=== PATIENT | female | born 1950 | race Caucasian/White ===

== ENCOUNTER 2017-08-12 18:03 | Emergency (ER) | payer MEDICARE, SELFPAY ==
[2017-08-12] VITALS (7 sets, daily range): BP systolic 120–145; BP diastolic 70–89; PULSE 79–108; RESP 12–18; TEMP 36.8; O2SAT 96–100; BMI 18.9
--- NOTE | 2017-08-12 18:37 | RAD_ITS ---
STUDY: X-RAY CHEST REASON FOR EXAM: Female, 67 years old. Chest pain TECHNIQUE: Single AP portable view of the chest. COMPARISON: 09/12/2012 FINDINGS: The lungs are clear and expanded. There is no demonstrated pleural abnormality. Normal size heart. Normal mediastinum and franklin. Normal visualized pulmonary arteries. Normal visualized aortic arch and descending thoracic aorta. Normal visualized thoracic spine. Normal visualized ribs, clavicles, and shoulders. There is no demonstrated abnormality of the visualized soft tissue structures of the upper abdomen. RAD/Chest 1 View (Portable) IMPRESSION: Stable, nonacute portable x-ray examination of the chest. Electronically Signed: Arturo Novoa MD at 20:36 EST , Service support ,
--- NOTE | 2017-08-12 18:37 | EKG12_ITS ---
Test Reason : CP Blood Pressure : / mmHG Vent. Rate : 094 BPM Atrial Rate : 094 BPM P-R Int : 118 ms QRS Dur : 082 ms QT Int : 350 ms P-R-T Axes : 075 071 069 degrees QTc Int : 437 ms Normal sinus rhythm Normal ECG Confirmed by CHITRA HIDALGO, SERENITY ([id number]), videotape editor NING OCONNOR ([id number]) on 08/14/2017 1:36:37 PM Referred By: MO Confirmed By:SERENITY BUENROSTRO MD
[2017-08-12 18:48] LABS: Absolute Lymphocyte Count 1.91 X10^3/ul (0.83-4.51); Absolute Neutrophil Count 3.5 X10^3/uL (2.0-7.7); Basophil# 0.03 X10^3/uL; Basophil% 0.5 % (0-1); Eosinophil# 0.09 X10^3/uL; Eosinophils% 1.5 % (0-5); Hematocrit 38.8 % (37-47); Hemoglobin 12.9 g/dl (12.0-15.0); Lymphocyte # 1.91 X10^3/ul (4.0); Lymphocyte % 32.9 % (19-41); Mean Corp Hgb Conc 33.2 g/gl (32-36); Mean Corpuscular Hgb 29.3 pg (27.0-32.0); Mean Platelet Vol. 10.2 fl (6.2-12.0); Monocyte# 0.28 X10^3/uL; Monocyte% 4.8 % (0-10); Neutrophil # 3.49 X10^3/uL (2.7-7.7); Neutrophil % 60.1 % (47-70); Platelet Count 214 K/mm3 (150-450); RBC Distribution Width CV 13.3 % (11.6-14.6); RBC Distribution Width SD 42.5 fl (35.1-43.9); Red Blood Count 4.41 M/mm3 (4.2-5.4); White Blood Count 5.8 K/mm3 (4.4-11.0)
[2017-08-12 18:50] LABS: POSITIVE COUNT NO; POSITIVE DIFFERENTIAL NO; POSITIVE MORPHOLOGY NO
[2017-08-12 19:15] LABS: Anion Gap 4 (5-15); BUN 21 mg/dL (7-18); Calcium,Total 9.1 mg/dL (8.5-10.1); Chloride 106 mmol/L (98-107); Creatinine, Serum 0.91 mg/dL (0.55-1.02); EST Glomerular Filtration Rate 66 mL/min (>60); Est Glom Filt Rate - Afr Amer 79 mL/min (>60); Glucose 146 mg/dL (74-106); Potassium 3.5 mmol/L (3.5-5.1); Sodium Level 141 mmol/L (136-145)
[2017-08-12 19:34] LABS: D-Dimer Quantitative (DVT/PE) < 0.27 FEU/ug/m (0.27-0.49)
[2017-08-12] MEDS: Aspirin 81 MG TAB.CHEW 243 MG PO (20:09)
[2017-08-12] MEDS: 0.9% Normal Saline 1,000 ML 150 ML IV (20:09)
--- NOTE | 2017-08-12 21:21 | EKG12_ITS ---
Test Reason : REPEPAT Blood Pressure : / mmHG Vent. Rate : 080 BPM Atrial Rate : 080 BPM P-R Int : 124 ms QRS Dur : 074 ms QT Int : 372 ms P-R-T Axes : 076 075 070 degrees QTc Int : 429 ms Normal sinus rhythm Normal ECG Confirmed by CHITRA HIDALGO, SERENITY ([id number]), acquisitions editor NING OCONNOR ([id number]) on 08/14/2017 1:36:25 PM Referred By: AMIRAH Confirmed By:SERENITY BUENROSTRO MD
--- NOTE | 2017-08-12 22:30 | ED.VISSUMM ---
- ER Visit Summary Date of Service: 08/12/17 Chief Complaint: Chest pain History of Present Illness: The patient is a 67 F who reports onset of left sternal chest pain at 330 this afternoon. Patient states that it started when she got up from a nap. She describes as sharp, heavy, and squeezing. Pain is worse with deep breath or with movement. She states she does not medically feel short of breath, but has increased pain with deep breath. She denies any change in activity or injury. She last had URI and cough symptoms approximately 6 weeks ago. Past history significant for SVT, high cholesterol, and asthma. She states her last stress test was in March 2016 and normal. Physical Examination: Vital signs are unremarkable. Head and neck examination is normal. Heart is regular rate and rhythm. Lung sounds are clear. She is reproducible tenderness along the left sternal border. Abdomen is soft nontender. Lower external examination was no calf tenderness or edema. She has strong distal pulses throughout. Test Results: EKG is sinus at 94 with no sign of acute ischemia. Portable chest x-ray shows no acute disease. CBC and chemistry studies are grossly unremarkable. Initial troponin is less than 0.02. D-dimer is less than 0.27. Emergency Department Course and Treatment: Patient received aspirin here. I evaluated her 3 hours after onset of her symptoms. We chose to perform a 3 hour repeat test. Repeat EKG and repeat troponin are both normal. Sensation at this time I feel comfortable discharging the patient home with follow-up. I believe her symptoms are all chest wall in nature. Treatment Plan: [] Disposition: Discharge Impression: Chest wall pain This note was generated with Pure[employer] dictation software. It may contain incorrect words, spelling, and punctuation that were not noted in review of the chart prior to signing ED Disposition - Plan for ED Patient: Disposition: Home or Assisted Living Chief Complaint: Chest Pain Instructions: ED Strain Chest Wall Referrals: Yonatan Salguero MD [Primary Care Provider] - 5-7 Days
== END 2017-08-12 22:44 | disposition home or self-care (01) ==
PROVIDERS: Emergency Provider Emergency Medicine; Family Provider Family Medicine; PCP Family Medicine
DX: R07.89 Other chest pain (principal); I47.1 Supraventricular tachycardia; J45.909 Unspecified asthma, uncomplicated; Z79.51 Long term (current) use of inhaled steroids
CPT/HCPCS: 36415; 71045; 80048; 84484; 85025; 85379; 93005; 96360; 96361; 99285; J7030; A4216

== ENCOUNTER → 2017-10-22 16:16 | Outpatient (CLI) | payer MEDICARE, SELFPAY ==
[2017-10-22 18:09] LABS: Absolute Lymphocyte Count 1.66 X10^3/ul (0.83-4.51); Absolute Neutrophil Count 3.6 X10^3/uL (2.0-7.7); Basophil# 0.03 X10^3/uL; Basophil% 0.5 % (0-1); Eosinophil# 0.09 X10^3/uL; Eosinophils% 1.6 % (0-5); Hematocrit 39.7 % (37-47); Hemoglobin 13.1 g/dl (12.0-15.0); Lymphocyte # 1.66 X10^3/ul (4.0); Lymphocyte % 28.7 % (19-41); Mean Corpuscular Volume 87.8 fL (81-99); Mean Platelet Vol. 10.5 fl (6.2-12.0); Monocyte# 0.36 X10^3/uL; Monocyte% 6.2 % (0-10); Neutrophil # 3.64 X10^3/uL (2.7-7.7); Neutrophil % 62.8 % (47-70); Platelet Count 229 K/mm3 (150-450); RBC Distribution Width CV 13.7 % (11.6-14.6); RBC Distribution Width SD 43.6 fl (35.1-43.9); Red Blood Count 4.52 M/mm3 (4.2-5.4); White Blood Count 5.8 K/mm3 (4.4-11.0)
[2017-10-22 18:11] LABS: POSITIVE COUNT NO; POSITIVE DIFFERENTIAL NO; POSITIVE MORPHOLOGY NO
[2017-10-22 18:36] LABS: ALB/GLOB Ratio 1.2 RATIO (0.9-2.4); AST(SGOT) 28 U/L (15-37); Alanine Aminotransfer ALT/SGPT 25 U/L (13-56); Alkaline Phosphatase 101 U/L (45-117); Anion Gap 5 (5-15); BUN 17 mg/dL (7-18); Chloride 104 mmol/L (98-107); Creatinine, Serum 0.85 mg/dL (0.55-1.02); EST Glomerular Filtration Rate 71 mL/min (>60); Est Glom Filt Rate - Afr Amer 86 mL/min (>60); Globulin 3.3 g/dL (2.2-4.2); Glucose 108 mg/dL (74-106); Potassium 3.9 mmol/L (3.5-5.1); Protein, Total 7.3 g/dL (6.4-8.2); Sodium Level 141 mmol/L (136-145); T4 Free Direct 0.96 ng/dL (0.76-1.46); Thyroid Stim Hormone (TSH) 0.76 uIU/mL (0.358-3.74)
== END ==
PROVIDERS: Family Provider Family Medicine; PCP Family Medicine; Visit Provider Family Medicine
DX: E55.9 Vitamin D deficiency, unspecified (principal); R53.83 Other fatigue
CPT/HCPCS: 36415; 80053; 82306; 84439; 84443; 85025

== ENCOUNTER → 2017-11-19 10:18 | Outpatient (CLI) | payer MEDICARE, SELFPAY ==
--- NOTE | 2017-11-19 10:24 | BD_ITS ---
STUDY: DUAL ENERGY X-RAY ABSORPTIOMETRY / DXA REASON FOR EXAM: Female, 67 years old. The patient is postmenopausal. Loss of right. TECHNIQUE: Bone Mineral Density (BMD) measurements of lumbar spine and bilateral hips were obtained. COMPARISON: None. FINDINGS: Lumbar Spine (L1-L4): g/cm2 (0.777) / T-score (-3.3) / Z-score (-1.7) Findings are suggestive of osteoporosis with a high fracture risk. Left Femur Total: g/cm2 (0.679) / T-score (-2.6) / Z-score (-1.4) Left Femoral Neck: g/cm2 (0.730) / T-score (-2.2) / Z-score (-0.7) Right Femur Total: g/cm2 (0.755) / T-score (-2.0) / Z-score (-0.8) Right Femoral Neck: g/cm2 (0.748) / T-score (-2.1) / Z-score (0.6) BD/Dexa Bone Density Study IMPRESSION: The patient is considered osteoporotic as outlined below according to World Reji Organization (WHO) criteria with a high fracture risk. Reference Information: The T-score is the number of standard deviations above or below the standard which is normal for young adults at their peak bone mineral density. The World Health Organization (WHO) interprets the T-scores as follows: Above -1 Normal bone density Between -1 and -2.5 Osteopenia Equal to / or below -2.5 Osteoporosis As a practical clinical guideline, osteopenia may be graded as follows: Mild -1 through -1.5 Moderate -1.6 through -2.0 Severe -2.1 through -2.4 The Z-score is the number of standard deviations above or below age-matched controls. A Z-score of less than -1.5 would be considered abnormal. References: 1. NIH Osteoporosis and Related Bone Diseases http://www.osteo.org 2. International Society for Clinical Densitometry http://www.iscd.org 3. National Osteoporosis Foundation http://www.nof.org Electronically Signed: Kedar Davenport MD at 11:11 EDT Tel [phone], Service support ,
--- NOTE | 2017-11-19 10:24 | BI_ITS ---
MAMMOGRAPHY - BILATERAL SCREENING REASON FOR EXAM: Female, 67 years old. Routine annual screening examination. PERTINENT HISTORY: Non-contributory. Remote right breast biopsy. TECHNIQUE: Digital bilateral breast muna (3D mammographic acquisition) in the CC and MLO projections. 2-D mediolateral oblique (MLO) and craniocaudad (CC) views of both breasts were obtained. CAD: Full Field Digital Mammography with Computer Added Detection was performed. COMPARISON: Comparison is made with prior outside examination dated August 03, 2016. FINDINGS: Breast Composition: The breasts are heterogeneously dense, which may obscure small masses. There are no dominant masses or suspicious calcifications. A tissue clip marker is seen in the upper slightly lateral portion of the right breast. No other significant abnormalities are identified. There has been no significant change since the prior study. BI/SCREENING MAMM (CAD), BILAT IMPRESSION: Stable bilateral screening mammogram. Yearly follow-up mammogram recommended. (A) ASSESSMENT CATEGORY: BIRADS Category 2: Benign. A letter regarding these results will be sent to the patient by the facility within 30 days. Approximately 10% of breast cancers are not detected by mammography. A normal mammogram should not delay biopsy of a clinically suspicious abnormality. [id number] Electronically Signed: Kedar Davenport MD at 14:21 EDT Tel [phone], Service support ,
== END ==
PROVIDERS: Family Provider Family Medicine; PCP Family Medicine; Visit Provider Family Medicine
DX: Z12.31 Encounter for screening mammogram for malignant neoplasm of breast (principal); M81.0 Age-related osteoporosis without current pathological fracture
CPT/HCPCS: 77063; 77067; 77080

== ENCOUNTER → 2018-12-23 | Outpatient (CLI) | payer MEDICARE, SELFPAY ==
[2018-12-23 10:32] LABS: Hematocrit 39.8 % (37-47); Hemoglobin 13.3 g/dl (12.0-15.0); Mean Corp Hgb Conc 33.4 g/gl (32-36); Mean Corpuscular Hgb 28.9 pg (27.0-32.0); Mean Corpuscular Volume 86.3 fL (81-99); Mean Platelet Vol. 10.5 fl (6.2-12.0); Platelet Count 222 K/mm3 (150-450); RBC Distribution Width CV 13.1 % (11.6-14.6); RBC Distribution Width SD 40.7 fl (35.1-43.9); Red Blood Count 4.61 M/mm3 (4.2-5.4); White Blood Count 4.8 K/mm3 (4.4-11.0)
[2018-12-23 10:35] LABS: Scan Indicated on CBC? Y/N NO
[2018-12-23 10:39] LABS: ALB/GLOB Ratio 1.3 RATIO (0.9-2.4); AST(SGOT) 20 U/L (15-37); Alanine Aminotransfer ALT/SGPT 21 U/L (13-56); Albumin, Serum 3.9 g/dL (3.2-5.0); Alkaline Phosphatase 84 U/L (45-117); Anion Gap 9 (5-15); BUN 17 mg/dL (7-18); BUN/Creat Ratio 19.1 RATIO (10-20); Calcium,Total 8.9 mg/dL (8.5-10.1); Chloride 107 mmol/L (98-107); Cholesterol 199 mg/dL (200); Creatinine, Serum 0.89 mg/dL (0.55-1.02); EST Glomerular Filtration Rate 68 mL/min (>60); Est Glom Filt Rate - Afr Amer 82 mL/min (>60); Glucose 93 mg/dL (74-106); High Density Lipoprotein 51 mg/dL; Potassium 3.7 mmol/L (3.5-5.1); Protein, Total 6.9 g/dL (6.4-8.2); Sodium Level 146 mmol/L (136-145); Triglycerides 183 mg/dL; Very Low Density Lipoprotein 37 mg/dL (5-40)
== END | disposition home or self-care (01) ==
LOC: MTLAB 08:29
PROVIDERS: Family Provider Family Medicine; PCP Family Medicine; Referring Provider Obstetrics & Gynecology Gynecology; Visit Provider Obstetrics & Gynecology Gynecology
DX: E83.51 Hypocalcemia (principal); E78.00 Pure hypercholesterolemia, unspecified; R53.83 Other fatigue; R53.81 Other malaise
CPT/HCPCS: 36415; 80053; 80061; 85027

== ENCOUNTER → 2019-01-05 | Outpatient (CLI) | payer MEDICARE, SELFPAY ==
[2017-08-12 18:04] VITALS: BMI 18.9
--- NOTE | 2019-01-05 15:24 | BI_ITS ---
MAMMOGRAPHY - BILATERAL SCREENING REASON FOR EXAM: Female, 68 years old. Routine annual screening examination. PERTINENT HISTORY: Non-contributory. Remote right breast biopsy. TECHNIQUE: Digital bilateral breast arthur (3D mammographic acquisition) in the CC and MLO projections. 2-D mediolateral oblique (MLO) and craniocaudad (CC) views of both breasts were obtained. CAD: Full Field Digital Mammography with Computer Added Detection was performed. COMPARISON: Comparison is made with prior study dated November 19, 2017. FINDINGS: Breast Composition: The breasts are extremely dense, which lowers the sensitivity of mammography. There are no dominant masses or suspicious calcifications. A tissue clip marker is once again seen in the upper slightly lateral aspect of the right breast. No other significant abnormalities are identified. There has been no significant change since the prior study. BI/SCREEN MAMM (CAD) W/ARTHUR BILAT IMPRESSION: Stable bilateral screening mammogram. Yearly follow-up mammogram recommended. (A) ASSESSMENT CATEGORY: BIRADS Category 2: Benign. A letter regarding these results will be sent to the patient by the facility within 30 days. Approximately 10% of breast cancers are not detected by mammography. A normal mammogram should not delay biopsy of a clinically suspicious abnormality. [id number] Electronically Signed: Kedar Davenport, at 7:57 EDT , Service support ,
== END | disposition home or self-care (01) ==
LOC: OPBI 15:23
PROVIDERS: Family Provider Family Medicine; PCP Family Medicine; Referring Provider Obstetrics & Gynecology Gynecology; Visit Provider Obstetrics & Gynecology Gynecology
DX: Z12.31 Encounter for screening mammogram for malignant neoplasm of breast (principal)
CPT/HCPCS: 77063; 77067

== ENCOUNTER → 2019-04-21 | Outpatient (CLI) | payer MEDICARE, SELFPAY | END | disposition home or self-care (01) | LOC: BFHLAB 15:33 | PROVIDERS: Family Provider Family Medicine; PCP Family Medicine; Visit Provider Family Medicine | DX: N39.0 Urinary tract infection, site not specified (principal) | CPT/HCPCS: 87086 ==

== ENCOUNTER 2019-05-18 06:27 | Day surgery (SDC) | payer MEDICARE, SELFPAY ==
[2019-04-27 10:13] VITALS: BMI 18.9
--- NOTE | 2019-04-27 10:28 | HP_ITS ---
Intake Vital Signs 04/27/19 Body Mass Index (BMI) 18.9 04/27/19 Height 5 ft 5.5 in 04/27/19 Weight: 113 lb 7 oz 04/27/19 Body Mass Index (BMI) 18.6 04/27/19 Blood Pressure 117/74 04/27/19 Blood Pressure Location Rt brachial 04/27/19 Blood Pressure Position Sitting 04/27/19 Respiratory Rate 20 H 04/27/19 Pulse Rate 86 04/27/19 Pulse Ox 97 Intake Visit Reasons: Positive Hemoccult, EGD/C-Scope Consult Chief Complaint: heme + stool Machine Sander Required: No Is patient in pain?: No Allergies acetaminophen [From Darvocet-N 100] Allergy (Verified 04/27/19 10:12) Unknown propoxyphene napsylate [From Darvocet-N 100] Allergy (Verified 04/27/19 10:12) Unknown Medications Ipratropium/Albuterol Respimat [Combivent Respimat Inhal Patterson] 1 puff INHALATION 4X/DAY 08/12/17 [History Confirmed 04/27/19] Montelukast Sodium 10 mg PO DAILY 08/12/17 [History Confirmed 04/27/19] Is last menstrual period known: No Post menopausal: Yes Patient : No PFSH Medical History Osteoarthritis (Acute) SVT (supraventricular tachycardia) (Acute) Fibromyalgia (Chronic) Asthma (Chronic) Surgical History History of colonoscopy (Acute) History of dental surgery (Acute) History of esophagogastroduodenoscopy (EGD) (Acute) History of mandibular surgery (Acute) History of tonsillectomy (Acute) History of total vaginal hysterectomy (Acute) Family History Other Diabetes Heart disease Social History (Updated 04/27/19 @ 10:29 by Jose Bruner MD) Smoking Status: Never smoker HPI HPI HPI: CHENG BARON, is a 69 F who presents to the office today for HPI HPI Surgical H&P: Yes HPI: CHENG BARON, is a 69 F who presents to the office today for Evaluation for endoscopy. Patient has had a positive Hemoccult test. She has noticed some intermittent abdominal cramping and some bloating but she has not noticed any visible blood. The patient has had an endoscopy in [address] Cormier and has had a history of colitis many many years ago. She is not noticing any diarrhea. ROS General General: Yes fatigue; no weight change, appetite, colon cancer, breast cancer or weakness HEENT HEENT: No difficulty swallowing, eye injury, eye surgery, swollen glands or hoarseness Endo Endocrine: No thyroid disease, diabetes mellitus, thyroid cancer, Hair loss, heat intolerance or cold intolerance Musc Musculoskeletal: Yes arthritis; no back problems, rheumatoid arthritis, gout or joint pain Cardio Cardiovascular: No murmur, pacemaker, heart disease, atrial fibrillation, high blood pressure, heart attack, heart stent, palpitations, shortness of breat with exertion or chest pain Resp Respiratory: No shortness of breath, No sleep apnea, No cough, No COPD, Yes asthma, No emphysema, No wheezing Gastro Gastrointestinal: Yes abdominal pain, No nausea or vomiting, No diarrhea, No constipation, No blood in stool, No acid reflux, No hemorrhoids, No ulcers, Yes gallbladder problem, No black,tarry stools Richy Hematologic: No blood thinners, No blood disorders, No bleeding, No anemia, No blood clots Neuro Neurologic: No weakness Exam Const General: no acute distress, well developed, well hydrated Orientation: oriented to person, oriented to place, oriented to time [facility] Head: normocephalic, atraumatic Ears: external ears normal Mouth: moist mucous membranes Eyes Sclera: sclerae normal Pupils: normal by confrontation Neck Neck: no lymphadenopathy noted Neck mass: No Thyroid: thyroid normal, symmetrical Chest Chest palpation & inspection: normal inspection of the chest Resp Effort & Inspection: normal respiratory effort Auscultation: clear to auscultation bilaterally Percussion: percussion normal Cardio Rate: regular rate Rhythm: regular rhythm Heart Sounds: no murmurs GI Palpation: soft, no hepatosplenomegaly, no masses, nontender Rectal Exam: other Other: Rectal exam deferred. Extrem General: normal to inspection, no clubbing, cyanosis or edema Assessment & Plan Problems 1. Heme positive stool R19.5 Plan I have discussed the above with the patient. I have offered the patient colonoscopy As well as an EGD for evaluation. I have explained the risks/benefits of the procedure and described the procedure. I have discussed the risks with the patient, including but not limited to: infection, bleeding, perforation of the GI tract requiring emergency surgery, inability to complete the procedure, injury to any internal organs, complications of anesthesia, etc. - the patient understands and agrees to proceed. I have answered all the patient's questions to the patient's satisfaction and the patient has no further questions. The patient has been given instructions for the colon cleansing preparation. We will be doing random colon biopsies as well as small bowel biopsy. Coding Level of Care Code Off vis,new,level 3 Diagnoses Heme positive stool R19.5 04/27/19 1029 <Electronically signed by Jose mcmahan MD> Date _ Jose Bruner MD I have re-examined the patient. There are no clinical changes since date of exam.
[2019-05-18] VITALS (8 sets, daily range): BP systolic 96–131; BP diastolic 57–72; PULSE 62–87; RESP 16; TEMP 36.3–36.4; O2SAT 97–100; BMI 21.5
--- NOTE | 2019-05-18 07:30 | IMM_PTH ---
PATIENT: CHENG BARON LOC: EN U#:[id number] AGE/SX: 69/F ROOM: RE05/18/[address]: Dr. Jose Bruner MD : 1950 BED: DIS: 05/18/2019 SPEC #: [id number] RECD: 05/18/19 10:05 STATUS: EMILY REQ #: [id number] DARIN: 05/18/19 07:[address]: Jose Bruner DEPT: IMMUNOHISTOCHEMISTRY RECD BY: Adriana Carrillo ENTERED: 05/18/19 10:05 SP TYPE: IMMUNO OTHR DR: Dr. Yonatan Salguero MD Tissues: B - Stomach, NOS Procedures: H Pylori (initial) PHYSICIAN & INSTITUTION [place] [id number] SPECIMEN INFORMATION: Tissue Source: B - Antra biopsy Clinical Info: Heme-positive stool Specimen Number: [id number] CPT code: 80204 METHODOLOGY: Deparaffinized sections of prefer/formalin-fixed tissue or PAP/DQ stained slides are incubated with monoclonal/polyclonal antibodies/oligonucleotide probes. Localization is made via biotin free immunoperoxidase method. Appropriate controls are performed and reacted as expected. Results on target cell population are indicated in the following table: RESULTS: ANTIBODY / CLONE RESULT Block B H Pylori (polyclonal) negative These tests were developed and their performance characteristics determined by [facility]. They may not have been cleared or approved by the U.S. Food and Drug Administration. The FDA has determined that such clearance or approval is not necessary. INTERPRETATION: B. Antral biopsy: Negative for Helicobacter pylori organisms. AM:letitia 05/20/19
--- NOTE | 2019-05-18 07:30 | EGD_PTH ---
PATIENT: CHENG BARON LOC: EN U#:[id number] AGE/SX: 69/F ROOM: RE05/18/[address]: Dr. Jose Bruner MD : 1950 BED: DIS: 05/18/2019 SPEC #: [id number] RECD: 05/18/19 08:52 STATUS: EMILY KYLER #: [id number] DARIN: 05/18/19 07:[address]: Jose Bruner DEPT: SURGICAL PATHOLOGY RECD BY: Luma Alvarado ENTERED: 05/18/19 11:20 SP TYPE: EGD BIOPSY OT DR: Dr. Yonatan Salguero MD Tissues: A - Duodenum, NOS B - Gastric mucous membrane C - Esophagus, NOS Procedures: Special Stain Group II Surgery Specimen Level IV Alcian Blue/PAS (control) HEADER OPERATION: [place] [place] DIAGNOSIS: Heme positive stool TISSUE SUBMITTED: A. Duodenal biopsy, B. Antral biopsy for histo and H. pylori, C. Distal esophagus biopsy MICROSCOPIC DIAGNOSIS A. Duodenum, biopsy: No pathologic change. B. Gastric antrum, biopsy: Mild chronic gastritis. See comment. C. Distal esophagus, biopsy: Gastroesophageal junctional mucosa with mild chronic inflammation. No evidence of intestinal metaplasia. See comment. AM:letitia 05/19/19 COMMENT B. The results of immunohistochemistry for Helicobacter pylori will be reported separately ([id number]). C. Alcian blue/PAS stain with matched control supports the above diagnosis. MICROSCOPIC DESCRIPTION Slides are reviewed. GROSS DESCRIPTION A - Received in fixative is one container labeled with the patient's name and designated duodenal biopsy. The specimen consists of one irregular fragment of light graham soft tissue that measures 0.2 x 0.2 x 0.1 cm. The specimen is totally submitted in one cassette. B - Received in fixative is one container labeled with the patient's name and designated antral biopsy. The specimen consists of one irregular fragment of light graham soft tissue that measures 0.5 x 0.3 x 0.1 cm. The specimen is totally submitted in one cassette. C - Received in fixative is one container labeled with the patient's name and designated distal esophagus biopsy. The specimen consists of two irregular fragments of light graham soft tissue that in aggregate measure 0.6 x 0.3 x 0.1 cm. The specimen is totally submitted in one cassette. / SJ:letitia 05/18/19 TC:5 CPT: 57388 x3, 71401
[2019-05-18] MEDS: Lactated Ringers 1,000 ML 100 ML IV (07:35)
--- NOTE | 2019-05-18 08:19 | OP.EGD_ITS ---
Patient Name: Tianna Coleman Procedure Date: 05/18/2019 7:29 AM Date of : 1950 Age: 69 Procedure: Upper GI endoscopy Indications: Suspected upper gastrointestinal bleeding in patient with chronic blood loss, Gastrointestinal bleeding Providers: Jose Bruner MD Referring MD: Yonatan Salguero Medicines: See the Anesthesia note for documentation of the administered medications Patient Profile: This is a 69 year old female. Refer to note in patient chart for documentation of history and physical. Complications: No immediate complications. Procedure: Pre-Anesthesia Assessment: - Prior to the procedure, a History and Physical was performed, and patient medications and allergies were reviewed. The patient's tolerance of previous anesthesia was also reviewed. The risks and benefits of the procedure and the sedation options and risks were discussed with the patient. All questions were answered, and informed consent was obtained. Prior Anticoagulants: The patient has taken no previous anticoagulant or antiplatelet agents. ASA Grade Assessment: II - A patient with mild systemic disease. After reviewing the risks and benefits, the patient was deemed in satisfactory condition to undergo the procedure. After obtaining informed consent, the endoscope was passed under direct vision. Throughout the procedure, the patient's blood pressure, pulse, and oxygen saturations were monitored continuously. The gastroscope was introduced through the mouth, and advanced to the second part of duodenum. The upper GI endoscopy was accomplished without difficulty. The patient tolerated the procedure well. Scope In: 7:56:16 AM Scope Out: 7:59:46 AM Total Procedure Duration Time 0 hours 3 minutes 30 seconds Findings: Mucosal changes including white plaques and mucosal friability were found at the gastroesophageal junction. Esophageal findings were graded using the Eosinophilic Esophagitis Endoscopic Reference Score (EoE-EREFS) as: Edema Grade 0 Normal (distinct vascular markings), Rings Grade 0 None (no ridges or rings seen), Exudates Grade 1 Mild (scattered white lesions involving less than 10 percent of the esophageal surface area), Furrows Grade 1 Present (vertical lines with or without visible depth) and Stricture none (no stricture found). Biopsies were taken with a cold forceps for histology. Localized mild inflammation characterized by congestion (edema) and linear erosions was found in the entire examined stomach. Biopsies were taken with a cold forceps for Helicobacter pylori testing. The examined duodenum was normal. Biopsies for histology were taken with a cold forceps for evaluation of celiac disease. Impression: - Esophageal mucosal changes secondary to eosinophilic esophagitis. Biopsied. - Gastritis. Biopsied. - Normal examined duodenum. Biopsied. Recommendation: - Await pathology results. - Repeat upper endoscopy in 1 year for surveillance. - Return to GI office in 1 week. - Continue present medications. Procedure Code(s): --- Professional --- 33565, Esophagogastroduodenoscopy, flexible, transoral; with biopsy, single or multiple Diagnosis Code(s): --- Professional --- K20.0, Eosinophilic esophagitis K29.70, Gastritis, unspecified, without bleeding R58, Hemorrhage, not elsewhere classified K92.2, Gastrointestinal hemorrhage, unspecified CPT copyright 2017 [employer]. All rights reserved. The codes documented in this report are preliminary and upon senior software qa engineer review may be revised to meet current compliance requirements. MD Jose Salomon MD 05/18/2019 8:19:16 AM This report has been signed electronically. Number of Addenda: 0 Note Initiated On: 05/18/2019 7:29 AM
--- NOTE | 2019-05-18 08:23 | OP.COLON_ITS ---
Patient Name: Tianna Coleman Procedure Date: 05/18/2019 8:01 AM Date of : 1950 Age: 69 Procedure: Colonoscopy Indications: Heme positive stool Providers: Jose Bruner MD Referring MD: Yonatan Salguero Medicines: See the Anesthesia note for documentation of the administered medications Patient Profile: This is a 69 year old female. Refer to note in patient chart for documentation of history and physical. Last Colonoscopy: 2011. Complications: No immediate complications. Procedure: Pre-Anesthesia Assessment: - Prior to the procedure, a History and Physical was performed, and patient medications and allergies were reviewed. The patient's tolerance of previous anesthesia was also reviewed. The risks and benefits of the procedure and the sedation options and risks were discussed with the patient. All questions were answered, and informed consent was obtained. Prior Anticoagulants: The patient has taken no previous anticoagulant or antiplatelet agents. ASA Grade Assessment: II - A patient with mild systemic disease. After reviewing the risks and benefits, the patient was deemed in satisfactory condition to undergo the procedure. After I obtained informed consent, the scope was passed under direct vision. Throughout the procedure, the patient's blood pressure, pulse, and oxygen saturations were monitored continuously. The colonoscope was introduced through the anus with the intention of advancing to the cecum. The scope was advanced to the sigmoid colon before the procedure was aborted. Medications were given. The colonoscopy was aborted due to the extreme difficulty of the procedure. Scope In: 8:02:33 AM Scope Out: 8:10:30 AM Total Procedure Duration Time 0 hours 7 minutes 57 seconds Findings: The anus, rectum, recto-sigmoid colon and sigmoid colon appeared normal. Impression: - The procedure was aborted due to the extreme difficulty of the procedure. - The anus, rectum, recto-sigmoid colon and sigmoid colon are normal. - No specimens collected. Recommendation: - Discharge patient to home. - Resume previous diet. - Continue present medications. - Perform an air contrast barium enema today. - Repeat colonoscopy at appointment to be scheduled because the examination was incomplete. Procedure Code(s): --- Professional --- 07528, 53, Colonoscopy, flexible; diagnostic, including collection of specimen(s) by brushing or washing, when performed (separate procedure) Diagnosis Code(s): --- Professional --- Z53.8, Procedure and treatment not carried out for other reasons R19.5, Other fecal abnormalities CPT copyright 2017 [employer]. All rights reserved. The codes documented in this report are preliminary and upon computer systems integrator review may be revised to meet current compliance requirements. MD Jose Salomon MD 05/18/2019 8:23:29 AM This report has been signed electronically. Number of Addenda: 0 Note Initiated On: 05/18/2019 8:01 AM
--- NOTE | 2019-05-18 10:48 | RAD_ITS ---
The preliminary film of the abdomen may showed gaseous colon: Because patient had colonoscopy. Barium was introduced to the rectum where there is excellent delineation of the rectum and descending, splenic flexure transverse colon hepatic flexure as well as the transverse and ascending colon. Barium reached the cecum with no reflux into the terminal ileum is noted. No evidence of filling defect identified. A single diverticulum noted in the sigmoid colon. No diverticulitis. RAD/Barium Enema w/Air Contrast IMPRESSION: Negative barium enema except for single small diverticulum in the sigmoid Electronically Signed: Jasmeet Newsome, at 12:10 EST Tel , Service support ,
== END 2019-05-18 10:40 | disposition home or self-care (01) ==
LOC: EN 06:30 → AC 06:30
PROVIDERS: Family Provider Family Medicine; PCP Family Medicine; Referring Provider Family Medicine; Visit Provider Surgery
PROC: 0DJD8ZZ Inspection of Lower Intestinal Tract, Via Natural or Artificial Opening Endoscopic (ICD-10-PCS; CPT 45378; principal; 2019-05-18 07:25)
DX: K29.50 Unspecified chronic gastritis without bleeding (principal); K20.0 Eosinophilic esophagitis; R19.5 Other fecal abnormalities; Z53.8 Procedure and treatment not carried out for other reasons; M79.7 Fibromyalgia; J45.909 Unspecified asthma, uncomplicated
CPT/HCPCS: 43239; 45378; 74280; 88305; 88313; 88342; J7120; J2405

== ENCOUNTER 2019-07-02 23:10 | Emergency (ER) | payer MEDICARE, SELFPAY ==
[2019-05-18 07:28] VITALS: BMI 21.5
[2019-07-02 23:12] VITALS: BP 144/92; PULSE 88; RESP 18; TEMP 36.4; O2SAT 99; BMI 18.3
--- NOTE | 2019-07-02 23:22 | ED.VIS.GEN ---
History of Present Illness Chief Complaint: Lower Extremity Injury Detail of Chief Complaint: Left foot injury Informant: Patient Onset: Today Current Severity: Mild Maximum Severity: Moderate Narrative: Patient presents with pain to the toes of her left foot after walking into a door earlier tonight. She was wearing socks only at the time. She iced and elevated her foot, but still has difficulty with ambulation. - Past Medical History (1) Asthma Status: Chronic (2) Fibromyalgia Status: Chronic Past Medical History - Allergies and Home Meds Allergies/Adverse Reactions: Allergies acetaminophen [From Darvocet-N 100] Allergy (Verified 07/02/19 23:14) Unknown propoxyphene napsylate [From Darvocet-N 100] Allergy (Verified 07/02/19 23:14) Unknown midazolam [From Versed] Adverse Reaction (Verified 07/02/19 23:14) disoreinted Primary Care Physician: Yonatan Salguero MD [Primary Care Provider] - Prior records reviewed: Yes Surgical History: hysterectomy Smoking Status: Never smoker Review of Systems General: Denies: Chills, Fever Eyes: Denies: Visual changes - bilaterally ENT: Denies: Bilateral ear pain Cardiovascular: Denies: Chest pain Respiratory: Denies: Dyspnea Gastrointestinal: Denies: Abdominal pain Musculoskeletal: Reports: Extremity Pain. Denies: Back pain Neurological: Denies: Numbness Hematologic: Denies: Easy bruising Physical Exam Vital Signs/Narrative: Vital Signs Temp Pulse Resp BP Pulse Ox 07/02/19 23:12 97.6 F L 88 18 144/92 H 99 Inital Vital Signs reviewed: Yes General: Well nourished, Well developed Head: Normocephalic ENT: Moist mucous membranes Neck: Supple Cardiovascular: Regular rate, Regular rhythm Respiratory: No distress, CTA bilaterally Abdomen: Soft, Nontender Extremities: - - Patient has reproducible tenderness over her toes, worse on the third toe. Good cap refill and sensation distally. No tenderness over the metatarsals. Skin: Normal color Neurological: Alert, Oriented x3 Psychological: Normal affect Diagnostic/Tx/Re-eval Left foot x-rays are read by myself. There is an oblique fracture across the proximal phalanx of the third toe. - Medical Decision Making Patient is given naproxen here. Second third toes were tiburcio taped together. Postop shoe was given. ED Disposition - Plan for ED Patient: Disposition: Home or Assisted Living Diagnosis: Fracture of third toe, left, closed Instructions: FRACTURE, Toe [Closed] Prescriptions: Naproxen [Naprosyn] 500 mg PO BID PRN PRN #20 tablet PRN Reason: Pain Score 4-10/10 Referrals: Yonatan Salguero MD [Primary Care Provider] - 1-2 Weeks
--- NOTE | 2019-07-02 23:28 | RAD_ITS ---
STUDY: X-RAY - LEFT FOOT CLINICAL: Female, 69 years old. STUBBED MIDDLE TOE, PAIN TECHNIQUE: 3 view(s) of the foot. COMPARISON: None. FINDINGS: Normal talus, calcaneus, and tarsal bones. Normal visualized subtalar, talonavicular, calcaneocuboid, tarsal and tarsometatarsal articulations. Normal metatarsi. Normal metatarsophalangeal joint of the great toe. Normal tibial and fibular sesamoid bones. Normal interphalangeal joint of the great toe. Normal phalanges of the great toe. Normal second through fifth metatarsophalangeal joints. Acute distal diaphyseal, nonarticular acute fracture of the proximal phalanx of the third toe with 2 mm lateral displacement. Fracture related soft tissue swelling. RAD/Foot min 3 Views IMPRESSION: Acute distal diaphyseal nonarticular fracture of the proximal phalanx of the third toe with 2 mm lateral displacement. Electronically Signed: Layla Rodriguez MD at 23:39 EST , Service support ,
[2019-07-03] MEDS: Naproxen 500 MG Tablet PO (00:11)
== END 2019-07-03 00:14 | disposition home or self-care (01) ==
PROVIDERS: Emergency Provider Emergency Medicine; Family Provider Family Medicine; PCP Family Medicine
DX: S92.512A Displaced fracture of proximal phalanx of left lesser toe(s), initial encounter for closed fracture (principal); J45.909 Unspecified asthma, uncomplicated; Z79.51 Long term (current) use of inhaled steroids; W22.03XA Walked into furniture, initial encounter; Y93.01 Activity, walking, marching and hiking; Y92.89 Other specified places as the place of occurrence of the external cause; Y99.8 Other external cause status
CPT/HCPCS: 73630; 99283

== ENCOUNTER → 2020-03-01 | Outpatient (CLI) | payer MEDICARE, SELFPAY ==
--- NOTE | 2020-03-01 08:39 | BI_ITS ---
MAMMOGRAPHY - BILATERAL DIAGNOSTIC REASON FOR EXAM: Female, 69 years old. Six-month history of left periareolar nodule. PERTINENT HISTORY: Non-contributory. TECHNIQUE: Digital bilateral breast muna (3D mammographic acquisition) in the CC and MLO projections. 2-D mediolateral oblique (MLO) and craniocaudad (CC) views of both breasts were obtained. CAD: Full Field Digital Mammography with Computer Added Detection was performed. COMPARISON: Comparison is made with prior study dated 01/05/2019 and 11/19/2017. FINDINGS: Breast Composition: The breasts are extremely dense, which lowers the sensitivity of mammography. There are no dominant masses or suspicious calcifications. A tissue clip marker is once again seen in the upper central portion of the right breast. No other significant abnormalities are identified. There has been no significant change since the prior study. BI/DIAG MAMM W/CAD, BILAT IMPRESSION: Stable bilateral diagnostic mammogram. With the patient''s history of a palpable lump in the left periareolar region, correlation with ultrasound is recommended. ASSESSMENT CATEGORY: BIRADS Category 0: Incomplete. Need additional imaging evaluation. A letter regarding these results will be sent to the patient by the facility within 30 days. Approximately 10% of breast cancers are not detected by mammography. A normal mammogram should not delay biopsy of a clinically suspicious abnormality. Electronically Signed: Kedar Davenport, at 10:39 EDT , Service support ,
--- NOTE | 2020-03-01 08:39 | US_ITS ---
STUDY: ULTRASOUND BREAST - LEFT REASON FOR EXAM: Female, 69 years old. Palpable lump left breast. TECHNIQUE: Axial and longitudinal images of the LEFT breast were performed with a high resolution ultrasound transducer. # OF IMAGES: 27 COMPARISON: Comparison is made with prior mammogram done earlier today. FINDINGS: LEFT Breast: There is a 2 mm x 3 mm x 2 mm retroareolar cyst. This also evidence of mildly dilated retroareolar ducts. US/Breast Limited Unilateral IMPRESSION: Mild degree of dilated retroareolar ducts. Small retroareolar cyst. ASSESSMENT CATEGORY: BIRADS Category 2: Benign. A letter regarding these results will be sent to the patient by the facility within 30 days. Electronically Signed: Kedar Davenport, at 11:03 EDT , Service support ,
--- NOTE | 2020-03-01 08:42 | BD_ITS ---
STUDY: DUAL ENERGY X-RAY ABSORPTIOMETRY / DXA REASON FOR EXAM: Female, 69 years old. 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 COMPARISON: Comparison is made with prior study dated 11/19/2017. FINDINGS: Lumbar Spine (L1-L4): g/cm2 (0.810) / T-score (-3.1) / Z-score (-1.4) Findings are suggestive of osteoporosis with a high fracture risk. Left Femur Total: g/cm2 (0.684) / T-score (-2.6) / Z-score (-1.2) Left Femoral Neck: g/cm2 (0.734) / T-score (-2.2) / Z-score (-0.6) Right Femur Total: g/cm2 (0.748) / T-score (-2.1) / Z-score (-0.7) Right Femoral Neck: g/cm2 (0.753) / T-score (-2.1) / Z-score (-0.5) The T-Scores on the most recent prior examination were: Lumbar Spine (L1-L4): There has been improvement of bone density since the previous examination. Left Femur Total: which represents an improvement of 0.7%. Right Femur Total: which represents a worsening of 0.9%. BD/Dexa Bone Density Study IMPRESSION: The patient is considered osteoporotic as outlined below according to World Reji Organization (WHO) criteria with a high fracture risk. There has been improvement of bone density since the previous examination. Reference Information: The T-score is the number of standard deviations above or below the standard which is normal for young adults at their peak bone mineral density. The World Health Organization (WHO) interprets the T-scores as follows: Above -1 Normal bone density Between -1 and -2.5 Osteopenia Equal to / or below -2.5 Osteoporosis As a practical clinical guideline, osteopenia may be graded as follows: Mild -1 through -1.5 Moderate -1.6 through -2.0 Severe -2.1 through -2.4 The Z-score is the number of standard deviations above or below age-matched controls. A Z-score of less than -1.5 would be considered abnormal. References: 1. NIH Osteoporosis and Related Bone Diseases http://www.osteo.org 2. International Society for Clinical Densitometry http://www.iscd.org 3. National Osteoporosis Foundation http://www.nof.org Electronically Signed: Kedar Davenport, at 11:09 EDT , Service support ,
== END | disposition home or self-care (01) ==
LOC: OPBI 08:37
PROVIDERS: PCP Family Medicine; Referring Provider Obstetrics & Gynecology Gynecology; Visit Provider Obstetrics & Gynecology Gynecology
DX: N63.24 Unspecified lump in the left breast, lower inner quadrant (principal); N63.23 Unspecified lump in the left breast, lower outer quadrant; Z78.0 Asymptomatic menopausal state; Z13.820 Encounter for screening for osteoporosis
CPT/HCPCS: 76642; 77062; 77066; 77080; G0279

== ENCOUNTER 2021-02-17 08:47 | Emergency (ER) | payer MEDICARE, SELFPAY ==
[2021-02-17] VITALS (7 sets, daily range): BP systolic 106–132; BP diastolic 66–84; PULSE 69–166; RESP 12–20; TEMP 36.4; O2SAT 98–100; BMI 18.1
[2021-02-17] MEDS: Adenosine 6 MG/2 ML Syringe IV (09:00)
--- NOTE | 2021-02-17 09:03 | RAD_ITS ---
STUDY: X-RAY CHEST REASON FOR EXAM: Female, 70 years old. Chest pain TECHNIQUE: Single AP portable view of the chest. COMPARISON: Comparison is made with prior study dated 08/12/2017. FINDINGS: EKG electrodes are seen. Hyperinflation. The lungs are clear. There is no demonstrated pleural abnormality. Normal size heart. Normal mediastinum and franklin. Normal visualized pulmonary arteries. Normal visualized aortic arch and descending thoracic aorta. Normal visualized thoracic spine. Normal visualized ribs, clavicles, and shoulders. There is no demonstrated abnormality of the visualized soft tissue structures of the upper abdomen. RAD/Chest 1 View (Portable) IMPRESSION: Hyperinflation. The lungs are clear. Electronically Signed: Kedar Davenport MD at 9:26 EDT , Service support ,
--- NOTE | 2021-02-17 09:03 | EKG12_ITS ---
Test Reason : CP Blood Pressure : / mmHG Vent. Rate : 164 BPM Atrial Rate : 328 BPM P-R Int : 000 ms QRS Dur : 076 ms QT Int : 270 ms P-R-T Axes : 000 080 -41 degrees QTc Int : 445 ms Atrial flutter Nonspecific ST abnormality Abnormal ECG Confirmed by JORDI HIDALGO, ISACC ([id number]), food editor PETER PATEL ([id number]) on 02/20/2021 12:41:32 PM Referred By: PL Confirmed By:ISACC BACON MD
[2021-02-17 09:09] LABS: Absolute Lymphocyte Count 2.03 X10^3/uL (0.83-4.51); Absolute Neutrophil Count 3.6 X10^3/uL (2.0-7.7); Basophil# 0.05 X10^3/uL; Basophil% 0.8 % (0-1); Eosinophils% 1.6 % (0-5); Hematocrit 47.8 % (37-47); Hemoglobin 15.6 g/dL (12.0-15.0); Lymphocyte # 2.03 X10^3/ul (0.83-4.51); Lymphocyte % 32.2 % (19-41); Mean Corp Hgb Conc 32.6 g/dL (32-36); Mean Corpuscular Hgb 29.4 pg (27.0-32.0); Mean Platelet Vol. 10.8 fl (6.2-12.0); Monocyte# 0.47 X10^3/uL; Monocyte% 7.5 % (0-10); NRBC Flagged by Analyzer 0 % (0-5); Neutrophil # 3.64 X10^3/uL (2.7-7.7); Neutrophil % 57.7 % (47-70); Platelet Count 276 K/mm3 (150-450); RBC Distribution Width CV 13.1 % (11.6-14.6); RBC Distribution Width SD 43.1 fl (35.1-43.9); Red Blood Count 5.31 M/mm3 (4.2-5.4); White Blood Count 6.3 K/mm3 (4.4-11.0)
[2021-02-17 09:23] LABS: Anion Gap 7 (5-15); BUN 23 mg/dL (7-18); BUN/Creat Ratio 22.3 RATIO (10-20); Calcium,Total 9.9 mg/dL (8.5-10.1); Chloride 105 mmol/L (98-107); Creatinine, Serum 1.03 mg/dL (0.55-1.02); EST Glomerular Filtration Rate 57 mL/min (>60); Est Glom Filt Rate - Afr Amer 68 mL/min (>60); Estimated Creatinine Clearance 41.51 ml/min; Glucose 132 mg/dL (74-106); Potassium 3.7 mmol/L (3.5-5.1); Sodium Level 142 mmol/L (136-145); Troponin-I HS 5 pg/mL (3.0-54.0)
--- NOTE | 2021-02-17 09:23 | EX.ED.DYSGE1 ---
HPI History of Present Illness Chief Complaint: Palpitations Informant: patient Narrative Narrative: Patient presents with SVT. She has had episodes of this for over 10 years. She has been on monitors. She has seen cardiology. She has had admissions with extensive work-up. Oftentimes she can use home techniques to break this. This 1 seem to not be breaking as much. She has used adenosine before. She has a little discomfort of her chest. She is not short of breath. No nausea vomiting or diaphoresis. Nothing she can thinks that sets this off but normally if that does not occur either. She has a history of asthma. She has no history of heart disease other than the SVT. No recent travel surgery immobilization personal or family history of DVT or PE. [facility] Medical History (Updated 02/17/21 @ 10:[address] Jas Chaney MD) Asthma Fibromyalgia Osteoarthritis SVT (supraventricular tachycardia) Home Medications ipratropium-albuterol 1 puff INHALATION 4X/DAY PRN 08/12/17 [History Last Taken Unknown] montelukast 10 mg PO DAILY 08/12/17 [History Last Taken Unknown] Allergy/AdvReac Type Severity Reaction Status Date / Time acetaminophen Allergy Unknown Verified 02/17/21 08:57 [From Darvocet-N 100] propoxyphene napsylate Allergy Unknown Verified 02/17/21 08:57 [From Darvocet-N 100] midazolam [From Versed] AdvReac disoreinted Verified 02/17/21 08:57 Family History Other Diabetes Heart disease Surgical History History of colonoscopy History of dental surgery History of esophagogastroduodenoscopy (EGD) History of mandibular surgery History of tonsillectomy History of total vaginal hysterectomy Social History Smoking Status: Never smoker ROS ROS ED Constitutional Constitutional ED: Denies chills or fever(s) Eyes Eyes: Denies blurry vision ENT ENT ED: Denies sore throat Cardiovascular Cardiovascular: Reports chest pain, palpitations and racing heartbeat Respiratory/Chest Respiratory/Chest: Denies cough, dyspnea or dyspnea on exertion Gastrointestinal Gastrointestinal: Denies nausea or vomiting Genitourinary Genitourinary ED: Denies hematuria Musculoskeletal Musculoskeletal: Denies back pain or neck pain Integumentary Denies rash Neurologic Neurologic: Denies headache(s), paresthesias or weakness Endocrine Endocrinology: Denies polydipsia or polyuria Allergic/Immunologic Allergic/Immunologic ED: Denies urticaria EXAM Physical Exam Const Vital Signs: 02/17/21 08:48 02/17/21 09:05 02/17/21 09:06 Temperature 97.5 F L Temperature Source Oral Pulse Rate 166 H Respiratory Rate 20 H Respiratory Effort Normal Non-Labored Blood Pressure 132/84 H Blood Pressure Mean 100 Pulse Ox 100 100 Oxygen Delivery Method Room Air Room Air 02/17/21 09:35 02/17/21 10:14 02/17/21 10:52 Temperature Temperature Source Pulse Rate 98 90 81 Respiratory Rate 12 17 17 Respiratory Effort Blood Pressure 110/75 106/66 116/70 Blood Pressure Mean 86 79 85 Pulse Ox 98 100 99 Oxygen Delivery Method Room Air Room Air Room Air 02/17/21 11:15 Temperature Temperature Source Pulse Rate 69 Respiratory Rate 17 Respiratory Effort Blood Pressure 111/69 Blood Pressure Mean 83 Pulse Ox 100 Oxygen Delivery Method Room Air Positive well nourished and well developed Constitutional Narrative: Patient is sitting quietly in the bed. She is on her phone. She looks amazingly comfortable considering her heart rate is about 170. She carries on a normal conversation. She is not pale or diaphoretic. General Appearance ED: well developed and NAD; Negative for cyanotic, diaphoretic or pallor HEENT Reports moist mucous membranes Negative for trauma Eyes General Eye ED: Negative for pale conjunctiva or scleral icterus Neck no JVD Chest Wall inspection of chest normal Resp normal respiratory effort and clear to auscultation bilaterally Auscultation: Negative for rales, rhonchi or wheezes Cardio regular rhythm; Negative for regular rate Rate: tachycardic GI normal to inspection, nondistended, normoactive bowel sounds and non-tender Palpation: soft Back/Spine no CVA tenderness General Back: Negative for CVA tenderness Extremity normal to inspection Neuro oriented x3 Sensorium / Orientation: alert Psych mental status grossly normal Skin no rashes or lesions noted General Skin Exam: Negative for jaundice or pallor MDM MDM MDM Narrative Medical decision making narrative: I was called in the room to see the patient. We attempted strong Valsalva with laying the patient back and lifting her legs. This was tried twice. She had a very minimal slowing of her rate but no change in her rhythm. We then proceeded with adenosine. I talked to her about side effects and issues with this. She has had a before with success. We gave 6 of adenosine. We got break of her rhythm. She went into a sinus rhythm with tachycardic rate initially in the 130s. She then went down to about 110 over the next couple minutes. She feels good. Patient's heart rate is now down in the upper 80s. I rechecked her. She is comfortable and asymptomatic. Blood work shows normal white count. Hemoglobin and BUN are slightly elevated. This could be consistent with a bit of dehydration and hemoconcentration. She is given IV fluids. Patient is overall relatively low risk. She does not have a story that is consistent with heart disease. Her only risk factor is father having heart disease starting likely somewhere in his late 40s. However, he was obese and was a smoker. We will keep her here and recheck a troponin to make sure were not getting significant elevations. Patient's heart rate is down the 70s. She is maintained being asymptomatic. She was given IV fluids. We rechecked her troponin. It did rise 8 but it still extremely low. I did discuss the case with Dr. Veronica swain. We both agree that this patient is asymptomatic, has had SVT many times, is not a high risk patient for heart disease. I believe she is okay and appropriate for discharge. 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 Lab Data Attestation: I reviewed the patient's lab results. Labs: Laboratory Results - last 24 hr 02/17/21 02/17/21 02/17/21 08:54 08:54 10:49 WBC 6.3 RBC 5.31 Hgb 15.6 H Hct 47.8 H MCV 90.0 MCH 29.4 MCHC 32.6 RDW Std Deviation 43.1 RDW Coeff of Rowan 13.1 Plt Count 276 MPV 10.8 Immature Gran % (Auto) 0.200 Neut % (Auto) 57.7 Lymph % (Auto) 32.2 [place] % (Auto) 7.5 Eos % (Auto) 1.6 Baso % (Auto) 0.8 Absolute Neuts (auto) 3.6 Absolute Lymphs (auto) 2.03 Nucleated RBC % 0 Sodium 142 Potassium 3.7 Chloride 105 Carbon Dioxide 30.0 Anion Gap 7 BUN 23 H Creatinine 1.03 H Estim Creat Clear Calc 41.51 Est GFR (MDRD) Af Amer 68 Est GFR (MDRD) Non-Af 57 L BUN/Creatinine Ratio 22.3 H Glucose 132 H Calcium 9.9 Troponin I High Sens 5 13 Radiography Diagnostic Testing: Radiology Impression Chest X-Ray 02/17/21 09:03 IMPRESSION: Hyperinflation. The lungs are clear. Electronically Signed: Kedar Davenport MD at 9:26 EDT , Service support , EKG Initial EKG: Comments: EKG done for tachycardia read by me shows a regular rhythm with tachycardic rate of 164. This does march out to be quite regular. There is no ventricular ectopy. There is no significant ST change. QRS duration and QTc are normal. This is a faster rate than her prior EKG of 12 August 2017. However, the complex shape is similar. Discharge Plan Triage Chief Complaint: Palpitations ED Provider: Jas Chaney Dx/Rx/DC Orders Clinical Impression: SVT (supraventricular tachycardia) Instructions: Supraventricular Tachycardia Prescriptions: No Action montelukast 10 MG tablet 10 mg PO DAILY RF: 0 ipratropium-albuterol 1 PUFF inhaler 1 puff inhalation 4X/DAY PRN (Reason: Sob &/Or Wheezing) RF: 0 Primary Care Provider: Yonatan Salguero Referrals: Yonatan Salguero MD [Primary Care Provider] - Activity Restrictions/Additional Instructions: Follow-up with your workforce analyst. Disposition Disposition: Home, Self Care
[2021-02-17] MEDS: 0.9% Normal Saline 1,000 ML 999 ML IV (09:48)
[2021-02-17 11:12] LABS: Troponin-I HS 13 pg/mL (3.0-54.0)
== END 2021-02-17 12:30 | disposition home or self-care (01) ==
PROVIDERS: Emergency Provider Emergency Medicine; PCP Family Medicine
DX: I47.1 Supraventricular tachycardia (principal); J45.909 Unspecified asthma, uncomplicated; M79.7 Fibromyalgia; M19.90 Unspecified osteoarthritis, unspecified site; Z79.51 Long term (current) use of inhaled steroids
CPT/HCPCS: 71045; 80048; 84484; 85025; 93005; 96361; 96374; 99284; A4216; J0153

== ENCOUNTER → 2021-03-06 11:58 | Outpatient (CLI) | payer MEDICARE, SELFPAY ==
--- NOTE | 2021-03-06 12:03 | BI_ITS ---
MAMMOGRAPHY - BILATERAL SCREENING REASON FOR EXAM: Female, 70 years old. Routine annual screening examination. PERTINENT HISTORY: Non-contributory. Remote right breast biopsy. TECHNIQUE: Digital bilateral breast arthur (3D mammographic acquisition) in the CC and MLO projections. 2-D mediolateral oblique (MLO) and craniocaudad (CC) views of both breasts were obtained. CAD: Full Field Digital Mammography with Computer Added Detection was performed. COMPARISON: Comparison is made with prior study dated 03/01/2020 and 01/05/2019. FINDINGS: Breast Composition: The breasts are extremely dense, which lowers the sensitivity of mammography. There are no dominant masses or suspicious calcifications. A tissue clip marker is once again seen in the upper central portion of the right breast. No other significant abnormalities are identified. There has been no significant change since the prior study. BI/SCRN MAMM (CAD)W/ARTHUR BILAT IMPRESSION: Stable bilateral screening mammogram. Yearly follow-up mammogram recommended. (A) ASSESSMENT CATEGORY: BIRADS Category 2: Benign. A letter regarding these results will be sent to the patient by the facility within 30 days. Approximately 10% of breast cancers are not detected by mammography. A normal mammogram should not delay biopsy of a clinically suspicious abnormality. [id number] Electronically Signed: Kedar Davenport MD at 12:45 EDT , Service support ,
== END ==
PROVIDERS: PCP Family Medicine; Visit Provider Obstetrics & Gynecology Gynecology
DX: Z12.31 Encounter for screening mammogram for malignant neoplasm of breast (principal)
CPT/HCPCS: 77063; 77067

== ENCOUNTER → 2021-11-10 | Outpatient (CLI) | payer MEDICARE, SELFPAY ==
[2021-11-10 10:54] LABS: AST(SGOT) 23 U/L (15-37); Alanine Aminotransfer ALT/SGPT 30 U/L (13-56); Albumin, Serum 3.9 g/dL (3.2-5.0); Alkaline Phosphatase 88 U/L (45-117); Amylase 97 U/L (25-115); Bilirubin, Direct 0.17 mg/dL (0.00-0.30); Lipase 259 U/L (73-393); Protein, Total 6.9 g/dL (6.4-8.2)
== END | disposition home or self-care (01) ==
LOC: MTLAB 08:34
PROVIDERS: PCP Family Medicine
DX: R10.11 Right upper quadrant pain (principal)
CPT/HCPCS: 36415; 80076; 82150; 83690

== ENCOUNTER → 2022-12-11 | Outpatient (CLI) | payer MEDICARE, SELFPAY ==
[2022-12-11 12:37] LABS: Absolute Lymphocyte Count 1.34 X10^3/uL (0.83-4.51); Absolute Neutrophil Count 2.5 X10^3/uL (2.0-7.7); Basophil# 0.04 X10^3/uL; Basophil% 0.9 % (0-1); Eosinophil# 0.08 X10^3/uL; Eosinophils% 1.9 % (0-5); Hematocrit 39.1 % (37-47); Hemoglobin 12.8 g/dL (12.0-15.0); Lymphocyte # 1.34 X10^3/ul (0.83-4.51); Mean Corp Hgb Conc 32.7 g/dL (32-36); Mean Corpuscular Hgb 29.2 pg (27.0-32.0); Mean Corpuscular Volume 89.1 fL (81-99); Mean Platelet Vol. 10.5 fl (6.2-12.0); Monocyte# 0.32 X10^3/uL; Monocyte% 7.4 % (0-10); NRBC Flagged by Analyzer 0 % (0-5); Neutrophil # 2.53 X10^3/uL (2.7-7.7); Neutrophil % 58.6 % (47-70); Platelet Count 243 K/mm3 (150-450); RBC Distribution Width SD 42.5 fl (35.1-43.9); Red Blood Count 4.39 M/mm3 (4.2-5.4); White Blood Count 4.3 K/mm3 (4.4-11.0)
[2022-12-11 12:51] LABS: Hemoglobin A1c 5.6 % (3.8-5.6)
[2022-12-11 12:57] LABS: Vitamin B12 1062 pg/mL (211-911); Vitamin D,25 Hydroxy 68.7 ng/mL
[2022-12-11 12:59] LABS: CRP, High Sensitivity Cardiac 2.05 mg/L; Cholesterol 188 mg/dL (200); Ferritin 44 ng/mL (8-252); High Density Lipoprotein 60 mg/dL; Iron 113 ug/dL (50-170); T4 Free Direct 1.05 ng/dL (0.76-1.46); Triglycerides 69 mg/dL; Very Low Density Lipoprotein 14 mg/dL (5-40)
[2022-12-12 08:46] LABS: ALB/GLOB Ratio 1.2 RATIO (0.9-2.4); AST(SGOT) 21 U/L (15-37); Alanine Aminotransfer ALT/SGPT 22 U/L (13-56); Albumin, Serum 3.8 g/dL (3.2-5.0); Alkaline Phosphatase 87 U/L (45-117); Anion Gap 6 (5-15); BUN 23 mg/dL (7-18); BUN/Creat Ratio 29.3 RATIO (10-20); Calcium,Total 9.2 mg/dL (8.5-10.1); Chloride 108 mmol/L (98-107); Creatinine, Serum 0.79 mg/dL (0.55-1.02); EST Glomerular Filtration Rate 77 mL/min (>60); Est Glom Filt Rate - Afr Amer 93 mL/min (>60); Globulin 3.2 g/dL (2.2-4.2); Glucose 88 mg/dL (74-106); Potassium 4.3 mmol/L (3.5-5.1); Sodium Level 142 mmol/L (136-145)
== END | disposition home or self-care (01) ==
LOC: BFHLAB 10:30
PROVIDERS: PCP Family Medicine; Visit Provider Nurse Practitioner Family
DX: E55.9 Vitamin D deficiency, unspecified (principal); E78.5 Hyperlipidemia, unspecified; R53.83 Other fatigue; Z82.49 Family history of ischemic heart disease and other diseases of the circulatory system
CPT/HCPCS: 36415; 80053; 80061; 82306; 82607; 82728; 83036; 83540; 84439; 84443; 85025; 86141